=== PATIENT | female | born 1950 | race African-American/Black ===

== ENCOUNTER 2021-08-12 12:56 | Emergency (ER) | payer MEDICARE ==
[~2021-08-12] VITALS: Ht 160 cm; Wt 78.0 kg
[2021-08-12] MEDS ORDERED: HYDRALAZINE HCL 25 MG TAB PO ONE (13:45)
== END 2021-08-12 14:39 | disposition home or self-care (01) ==
LOC: ER 13:20
DX: I10 Essential (primary) hypertension (principal); E11.9 Type 2 diabetes mellitus without complications; N28.9 Disorder of kidney and ureter, unspecified; E78.5 Hyperlipidemia, unspecified; E03.9 Hypothyroidism, unspecified; I73.9 Peripheral vascular disease, unspecified
CPT/HCPCS: 99283

== ENCOUNTER 2021-10-13 14:21 | Inpatient (IN) | payer MEDICARE ==
[~2021-10-13] VITALS: Ht 160 cm; Wt 73.1 kg
[2021-10-13] MEDS ORDERED: SODIUM CHLORIDE FLUSH 10 ML SYR IV PRN (15:15)
[2021-10-13] MEDS ORDERED: ASPIRIN 325 MG TAB PO ONE (15:15)
[2021-10-13] MEDS ORDERED: ONDANSETRON HCL INJ 2MG/ML 2ML 2 MG/ML VIAL IV PRN ×2 (15:30→17:00)
[2021-10-13 15:36] LABS: BASOPHILS % 0.2 % (0.0-1.0); EOSINOPHILS # (AUTO) 0.2 (0.0-0.4); HEMATOCRIT 32.8 % (34.2-44.1); HEMOGLOBIN 9.8 g/dL (12.0-16.0); LYMPHOCYTES % 23.9 % (18.0-39.1); MEAN CORPUSCULAR HGB CONC 29.9 g/dL (31-35); MEAN CORPUSCULAR VOLUME 90.4 fL (81-99); MONOCYTES # (AUTO) 0.9 (0.2-0.8); NEUTROPHILS # (AUTO) 5.3 (2.1-6.9); NEUTROPHILS % 62.7 % (38.7-80.0); PLATELET COUNT 253 x10e3/uL (140-360); RED BLOOD COUNT 3.63 x10e6/uL (3.6-5.1); RED CELL DISTRIBUTION WIDTH 14.6 % (11.7-14.4)
[2021-10-13 15:46] LABS: INR 0.97; PROTHROMBIN TIME 13.8 seconds (11.9-14.5)
[2021-10-13 15:47] LABS: PARTIAL THROMBOPLASTIN TIME 28.6 seconds (23.8-35.5)
[2021-10-13 15:56] LABS: ALBUMIN 2.9 g/dL (3.5-5.0); ALBUMIN/GLOBULIN RATIO 0.7 (0.8-2.0); ANION GAP 15.4 mmol/L (8-16); CALCIUM 8.3 mg/dL (8.4-10.2); CREATININE, SERUM 2.26 mg/dL (0.57-1.11); POTASSIUM 4.4 mmol/L (3.5-5.1)
[2021-10-13] MEDS ORDERED: HEPARIN 25,000 UNIT 25,000 UNIT in DEXTROSE 5% 250ML 250 ML IV SCH (16:30)
[2021-10-13] MEDS ORDERED: HEPARIN SOD (PORCINE) 1000 UNIT/ML 10ML MDV IV ONE (16:30)
[2021-10-13] MEDS: HEPARIN 25,000 UNIT 800 UNIT in DEXTROSE 5% 250ML 250 ML IV SCH (16:45)
[2021-10-13] MEDS ORDERED: HEPARIN SOD (PORCINE) 5,000 UNIT/ML VIAL IV ONE (17:00)
[2021-10-13] MEDS ORDERED: Morphine 2mg Syringe 2 MG/ML SYR IV PRN (17:00)
[2021-10-13] MEDS ORDERED: HEPARIN 25,000 UNIT DRIP IV ONE (17:05)
[2021-10-13] MEDS ORDERED: METOPROLOL SUCCINATE 50 MG TAB XL PO ONE (17:15)
[2021-10-13] MEDS ORDERED: CLOPIDOGREL BISULFATE 75 MG TAB PO ONE (17:15)
[2021-10-13] MEDS ORDERED: HYDRALAZINE HCL 20 MG/ML VIAL IV PRN (17:15)
[2021-10-13] MEDS ORDERED: AMLODIPINE BESYLATE 5 MG TAB PO ONE (17:15)
[2021-10-13] MEDS: SODIUM CHLORIDE 0.9% 1000ML 1,000 ML IV SCH (18:10)
[2021-10-13] MEDS: NIRMATRELVIR/RITONAVIR 1 EACH BOX PO SCH (19:45)
[2021-10-13 20:46] VITALS: BP 146/56
[2021-10-13] MEDS ORDERED: PNEUMOCOCCAL VACCINE POLYVALENT 23 MCG/0.5 ML VIAL IM ONE (20:58)
[2021-10-13 21:00] VITALS: BP 146/56
[2021-10-13 22:00] VITALS: BP 144/63
[2021-10-13 22:15] VITALS: BP 145/56
[2021-10-13] MEDS: ATORVASTATIN 40 MG TAB PO SCH (22:29)
[2021-10-13] MEDS: HYDRALAZINE HCL 25 MG TAB PO SCH (22:30)
[2021-10-13] MEDS: ISOSORBIDE DINITRATE 20 MG TAB PO SCH (22:31)
[2021-10-13 23:51] VITALS: BP 115/45
[2021-10-14] VITALS (42 sets, daily range): BP systolic 77–153; BP diastolic 41–86
[2021-10-14 07:48] LABS: BASOPHILS % 0.2 % (0.0-1.0); EOSINOPHILS # (AUTO) 0.3 (0.0-0.4); EOSINOPHILS % 3.6 % (0.0-6.0); HEMATOCRIT 32.4 % (34.2-44.1); HEMOGLOBIN 9.9 g/dL (12.0-16.0); LYMPHOCYTES # (AUTO) 3.1 (1.0-3.2); LYMPHOCYTES % 34.8 % (18.0-39.1); MEAN CORPUSCULAR HEMOGLOBIN 27.5 pg (28-32); MEAN CORPUSCULAR HGB CONC 30.6 g/dL (31-35); MONOCYTES # (AUTO) 0.9 (0.2-0.8); MONOCYTES % 9.7 % (4.4-11.3); NEUTROPHILS # (AUTO) 4.6 (2.1-6.9); NEUTROPHILS % 51.4 % (38.7-80.0); PLATELET COUNT 245 x10e3/uL (140-360); RED CELL DISTRIBUTION WIDTH 14.6 % (11.7-14.4)
[2021-10-14 08:17] LABS: ALBUMIN 2.6 g/dL (3.5-5.0); ALBUMIN/GLOBULIN RATIO 0.7 (0.8-2.0); ANION GAP 14.5 mmol/L (8-16); CALCIUM 8.2 mg/dL (8.4-10.2); CHOL/HDL RATIO 4.3 (3.0-3.6); CREATININE, SERUM 1.87 mg/dL (0.57-1.11); POTASSIUM 4.5 mmol/L (3.5-5.1)
[2021-10-14 08:42] LABS: CREATINE KINASE MB 2.7 ng/mL (0-5.0)
[2021-10-14] MEDS: ISOSORBIDE DINITRATE 20 MG TAB PO SCH ×3 (09:00→21:13)
[2021-10-14] MEDS: METOPROLOL SUCCINATE 50 MG TAB XL PO SCH (09:00)
[2021-10-14] MEDS: HYDRALAZINE HCL 25 MG TAB PO SCH ×3 (09:00→21:14)
[2021-10-14] MEDS: AMLODIPINE BESYLATE 5 MG TAB PO SCH (09:00)
[2021-10-14] MEDS: CLOPIDOGREL BISULFATE 75 MG TAB PO SCH (09:20)
[2021-10-14] MEDS: NIRMATRELVIR/RITONAVIR 1 EACH BOX PO SCH ×2 (10:08→20:08)
[2021-10-14] MEDS ORDERED: DEXTROSE 50% SYRINGE 50 ML IV PRN (15:30)
[2021-10-14] MEDS: SODIUM CHLORIDE 0.9% 1000ML 1,000 ML IV SCH ×2 (15:31→15:32)
[2021-10-14 15:42] LABS: CREATINE KINASE MB 2.6 ng/mL (0-5.0)
[2021-10-14] MEDS: INSULIN REGULAR, HUMAN 100 UNIT/1 ML SQ SCH ×2 (16:30→21:25)
[2021-10-14] MEDS: HEPARIN 25,000 UNIT 800 UNIT in DEXTROSE 5% 250ML 250 ML IV SCH (17:08)
[2021-10-14] MEDS: ATORVASTATIN 40 MG TAB PO SCH (21:13)
[2021-10-15] VITALS (27 sets, daily range): BP systolic 110–156; BP diastolic 40–116
[2021-10-15] MEDS: SODIUM CHLORIDE 0.9% 1000ML 1,000 ML IV SCH ×2 (00:52→10:18)
[2021-10-15] MEDS: INSULIN REGULAR, HUMAN 100 UNIT/1 ML SQ SCH ×4 (07:30→21:34)
[2021-10-15] MEDS: METOPROLOL SUCCINATE 50 MG TAB XL PO SCH (07:47)
[2021-10-15] MEDS: NIRMATRELVIR/RITONAVIR 1 EACH BOX PO SCH ×2 (08:36→20:10)
[2021-10-15] MEDS: CLOPIDOGREL BISULFATE 75 MG TAB PO SCH (08:37)
[2021-10-15] MEDS: AMLODIPINE BESYLATE 5 MG TAB PO SCH (08:37)
[2021-10-15] MEDS: HYDRALAZINE HCL 25 MG TAB PO SCH ×3 (08:37→21:35)
[2021-10-15] MEDS: ISOSORBIDE DINITRATE 20 MG TAB PO SCH ×3 (08:37→21:36)
[2021-10-15] MEDS: HEPARIN 25,000 UNIT 800 UNIT in DEXTROSE 5% 250ML 250 ML IV SCH ×2 (16:45→19:45)
[2021-10-15] MEDS ORDERED: HEPARIN SOD (PORCINE) 1000 UNIT/ML 30ML ONE (17:19)
[2021-10-15] MEDS ORDERED: IOPAMIDOL 370 MG/ML 100 ML INFUS..BTL INJ ONE (17:20)
[2021-10-15] MEDS ORDERED: HEPARIN SOD/SOD CHLORIDE 2,000 ML ONE (17:20)
[2021-10-15] MEDS ORDERED: SODIUM CHLORIDE 0.9% 1000ML 1,000 ML ONE (17:20)
[2021-10-15] MEDS ORDERED: LIDOCAINE HCL 2% LOCAL 20 ML VIAL ONE (17:20)
[2021-10-15] MEDS: ATORVASTATIN 40 MG TAB PO SCH (21:35)
[2021-10-16] VITALS (26 sets, daily range): BP systolic 65–138; BP diastolic 39–63
[2021-10-16 07:10] LABS: BASOPHILS % 0.3 % (0.0-1.0); EOSINOPHILS # (AUTO) 0.3 (0.0-0.4); EOSINOPHILS % 3.8 % (0.0-6.0); HEMATOCRIT 27.8 % (34.2-44.1); HEMOGLOBIN 9.1 g/dL (12.0-16.0); LYMPHOCYTES # (AUTO) 1.5 (1.0-3.2); LYMPHOCYTES % 22.2 % (18.0-39.1); MEAN CORPUSCULAR HEMOGLOBIN 27.6 pg (28-32); MEAN CORPUSCULAR HGB CONC 32.7 g/dL (31-35); MEAN CORPUSCULAR VOLUME 84.2 fL (81-99); MONOCYTES # (AUTO) 0.8 (0.2-0.8); MONOCYTES % 11.5 % (4.4-11.3); NEUTROPHILS # (AUTO) 4.3 (2.1-6.9); NEUTROPHILS % 61.8 % (38.7-80.0); PLATELET COUNT 251 x10e3/uL (140-360); RED CELL DISTRIBUTION WIDTH 14.6 % (11.7-14.4)
[2021-10-16 07:29] LABS: ALBUMIN 2.7 g/dL (3.5-5.0); ALBUMIN/GLOBULIN RATIO 0.8 (0.8-2.0); ANION GAP 12.9 mmol/L (8-16); CALCIUM 8.1 mg/dL (8.4-10.2); CREATININE, SERUM 1.62 mg/dL (0.57-1.11); POTASSIUM 3.9 mmol/L (3.5-5.1)
[2021-10-16] MEDS: INSULIN REGULAR, HUMAN 100 UNIT/1 ML SQ SCH ×4 (07:30→20:30)
[2021-10-16] MEDS: HYDRALAZINE HCL 25 MG TAB PO SCH ×3 (09:00→20:33)
[2021-10-16] MEDS: NIRMATRELVIR/RITONAVIR 1 EACH BOX PO SCH ×3 (10:17→20:24)
[2021-10-16] MEDS: AMLODIPINE BESYLATE 5 MG TAB PO SCH (10:18)
[2021-10-16] MEDS: METOPROLOL SUCCINATE 50 MG TAB XL PO SCH (10:19)
[2021-10-16] MEDS: CLOPIDOGREL BISULFATE 75 MG TAB PO SCH (10:19)
[2021-10-16] MEDS: ISOSORBIDE DINITRATE 20 MG TAB PO SCH ×3 (10:20→20:33)
[2021-10-16] MEDS ORDERED: HEPARIN SOD/SOD CHLORIDE 2,000 ML ONE (11:39)
[2021-10-16] MEDS ORDERED: LIDOCAINE HCL 2% LOCAL 20 ML VIAL ONE (11:39)
[2021-10-16] MEDS ORDERED: HEPARIN SOD (PORCINE) 1000 UNIT/ML 30ML ONE (11:57)
[2021-10-16] MEDS ORDERED: NITROGLYCERIN/D5W 200 MCG/ML 250 ML ONE (11:58)
[2021-10-16] MEDS ORDERED: IOPAMIDOL 370 MG/ML 100 ML INFUS..BTL INJ ONE (11:58)
[2021-10-16] MEDS ORDERED: SODIUM CHLORIDE 0.9% 1000ML 1,000 ML ONE (11:58)
[2021-10-16] MEDS ORDERED: MIDAZOLAM HCL 2 MG/2 ML VIAL ONE (12:17)
[2021-10-16] MEDS ORDERED: FENTANYL CITRATE/PF 100MCG/2 ML INJ ONE (12:17)
[2021-10-16] MEDS: ATORVASTATIN 40 MG TAB PO SCH (20:31)
[2021-10-17] VITALS (15 sets, daily range): BP systolic 109–135; BP diastolic 43–76
[2021-10-17] MEDS: INSULIN REGULAR, HUMAN 100 UNIT/1 ML SQ SCH ×3 (07:30→17:00)
[2021-10-17 07:31] LABS: BASOPHILS % 0.4 % (0.0-1.0); EOSINOPHILS # (AUTO) 0.3 (0.0-0.4); EOSINOPHILS % 4.4 % (0.0-6.0); HEMATOCRIT 30.2 % (34.2-44.1); HEMOGLOBIN 9.5 g/dL (12.0-16.0); LYMPHOCYTES # (AUTO) 1.8 (1.0-3.2); LYMPHOCYTES % 25.4 % (18.0-39.1); MEAN CORPUSCULAR HEMOGLOBIN 27.1 pg (28-32); MEAN CORPUSCULAR HGB CONC 31.5 g/dL (31-35); MEAN CORPUSCULAR VOLUME 86.3 fL (81-99); MONOCYTES # (AUTO) 0.8 (0.2-0.8); MONOCYTES % 11.3 % (4.4-11.3); NEUTROPHILS # (AUTO) 4.1 (2.1-6.9); NEUTROPHILS % 58.4 % (38.7-80.0); PLATELET COUNT 266 x10e3/uL (140-360); RED CELL DISTRIBUTION WIDTH 15.1 % (11.7-14.4)
[2021-10-17 08:03] LABS: ALBUMIN 2.5 g/dL (3.5-5.0); ALBUMIN/GLOBULIN RATIO 0.6 (0.8-2.0); ANION GAP 12.2 mmol/L (8-16); CREATININE, SERUM 1.72 mg/dL (0.57-1.11); POTASSIUM 4.2 mmol/L (3.5-5.1)
[2021-10-17] MEDS: NIRMATRELVIR/RITONAVIR 1 EACH BOX PO SCH (08:36)
[2021-10-17] MEDS ORDERED: HYDROCHLOROTH12.5 MG PO (10:39)
[2021-10-17] MEDS ORDERED: SOLIQUA 100 UNIT3 ML (10:39)
[2021-10-17] MEDS ORDERED: AMLODIPINE BESYL5 MG PO (10:39)
[2021-10-17] MEDS ORDERED: HYDRALAZINE HCL25 MG PO (10:39)
[2021-10-17] MEDS ORDERED: ZESTRIL10 MG PO (10:39)
[2021-10-17] MEDS ORDERED: METOPROLOL SUCCINATE 25 MG TAB XL PO SCH (11:00)
[2021-10-17] MEDS: CLOPIDOGREL BISULFATE 75 MG TAB PO SCH (11:06)
[2021-10-17] MEDS: ISOSORBIDE DINITRATE 20 MG TAB PO SCH ×2 (11:07→17:01)
[2021-10-17] MEDS ORDERED: TOPROL XL25 MG PO (16:15)
[2021-10-17] MEDS ORDERED: HUMULIN R100 UNIT/2 SQ (16:15)
[2021-10-17] MEDS ORDERED: Atorvastatin PO (16:15)
[2021-10-17] MEDS ORDERED: PLAVIX75 MG PO (16:15)
[2021-10-17] MEDS ORDERED: ISORDIL20 MG PO (16:15)
[2021-10-17] MEDS ORDERED: ASPIRIN81 MG PO (17:44)
== END 2021-10-17 19:00 | disposition home or self-care (01) | DRG 280 ==
LOC: ER 14:29 → ERHOLD 17:01 → ICU 20:24
PROVIDERS: ADMIT Internal Medicine; ATTEND Internal Medicine
PROC: XW0DXF5 Introduction of Other New Technology Therapeutic Substance into Mouth and Pharynx, External Approach, New Technology Group 5 (ICD-10-PCS; principal; 2021-10-13)
PROC: 8E0ZXY6 Isolation (ICD-10-PCS; 2021-10-13)
PROC: 3E0234Z Introduction of Serum, Toxoid and Vaccine into Muscle, Percutaneous Approach (ICD-10-PCS; 2021-10-13)
PROC: 4A023N7 Measurement of Cardiac Sampling and Pressure, Left Heart, Percutaneous Approach (ICD-10-PCS; 2021-10-16)
PROC: B2111ZZ Fluoroscopy of Multiple Coronary Arteries using Low Osmolar Contrast (ICD-10-PCS; 2021-10-16)
PROC: B2151ZZ Fluoroscopy of Left Heart using Low Osmolar Contrast (ICD-10-PCS; 2021-10-16)
DX: I21.4 Non-ST elevation (NSTEMI) myocardial infarction (principal); U07.1 COVID-19; N17.9 Acute kidney failure, unspecified; E11.22 Type 2 diabetes mellitus with diabetic chronic kidney disease; E03.9 Hypothyroidism, unspecified; I12.9 Hypertensive chronic kidney disease with stage 1 through stage 4 chronic kidney disease, or unspecified chronic kidney disease; D64.9 Anemia, unspecified; N18.30 Chronic kidney disease, stage 3 unspecified; Z87.440 Personal history of urinary (tract) infections; Z23 Encounter for immunization
CPT/HCPCS: 36415; 70450; 71045; 76937; 80053; 80061; 82550; 82553; 82948; 84484; 85025; 85610; 85730; 93005; 93306; 93458; 94760; 94799; 96372; 99152; 99153; 99284; C1760; C1769; J1644; J1817; J2001; J2250; J3010; J7030; Q9967